=== PATIENT | male | born 2000 | race Caucasian/White ===

== ENCOUNTER 2021-05-03 04:26 | Observation (INO) | payer OTHER, SELFPAY ==
[2021-05-03] VITALS (11 sets, daily range): BP systolic 103–120; BP diastolic 56–81; PULSE 71–104; RESP 15–18; TEMP 36.4–36.9; O2SAT 91–98; BMI 23.6
--- NOTE | 2021-05-03 05:04 | XRR_ITS ---
PROCEDURE INFORMATION: Exam: XR Chest Exam date and time: 05/03/2021 5:04 AM Age: 20 years old Clinical indication: Other: Drug od; Additional info: Post cpr TECHNIQUE: Imaging protocol: XR of the chest. Views: 1 view. COMPARISON: No relevant prior studies available. FINDINGS: Lungs: No CHF/pulmonary edema. Visible lungs appear essentially clear. Pleural spaces: No visible pneumothorax. No definite pleural fluid. Heart/Mediastinum: Heart size is within normal limits. Bones/joints: No significant acute finding. XR/XR chest 1V portable [id number] IMPRESSION: 1. Essentially unremarkable single view chest. 2. Other findings discussed above.
--- NOTE | 2021-05-03 05:04 | CTR_ITS ---
PROCEDURE INFORMATION: Exam: CT Head Without Contrast Exam date and time: 05/03/2021 5:04 AM Age: 20 years old Clinical indication: Other: Drug od w/ chest compressions; Additional info: Mental status change TECHNIQUE: Imaging protocol: Computed tomography of the head without contrast. Radiation optimization: All CT scans at this facility use at least one of these dose optimization techniques: automated exposure control; mA and/or kV adjustment per patient size (includes targeted exams where dose is matched to clinical indication); or iterative reconstruction. COMPARISON: No relevant prior studies available. RADIATION DOSE METRICS: Total DLP (mGy-cm): 943.3 FINDINGS: Brain: No acute intracranial hemorrhage or mass effect. No definite acute infarct by CT. MRI could be more sensitive/specific for detection, as clinically directed. Cerebral ventricles: Ventricle size is normal for age. Paranasal sinuses: Small amount of fluid in the sphenoid sinus. Suspect a 5 mm retention cyst or polyp in both included upper maxillary sinuses. Included paranasal sinuses otherwise appear essentially clear. Mastoid air cells: No significant acute finding. Bones/joints: No definite acute skull fracture. CT/CT head wo con* [id number] IMPRESSION: 1. No acute intracranial hemorrhage or mass effect. 2. No definite acute infarct by CT, see above. 3. Other findings discussed above. Radiation Dose CTDIVOL = (mGy): DLP = 943.3 (mGy-cm)
--- NOTE | 2021-05-03 05:07 | ECG_ITS ---
[facility] Test Date: 2021-05-03 Pat Name: STEVEN VASQUEZ Department: Room: Gender: Male Automatic Buffer: : 2000 Requested By: Marv Guidry Order Number: [id number] Génesis MD: BANDAR HAWKINS Measurements Intervals [place] Rate: 120 P: -20 LA: 135 QRS: -32 QRSD: 105 T: 0 QT: 303 QTc: 429 Interpretive Statements SINUS TACHYCARDIA VOLTAGE CRITERIA FOR LVH [MEETS CRITERIA IN ONE OF: R(aVL), S(V1), R(V5), R(V5/V6)+S(V1)] INFERIOR MYOCARDIAL INFARCTION , PROBABLY OLD [40+ ms Q WAVE AND/OR ST/T ABNORMALITY IN II/aVF] No previous ECG available for comparison Electronically Signed On 05-03-2021 18:23:25 CDT by BANDAR HAWKINS [id number]
[2021-05-03] MEDS: naloxone 0.4 mg/ml SDV 1 MG IVP (05:20)
[2021-05-03 05:34] LABS: Basophils # 0.1 10^3/uL (0.0-0.1); Basophils % 0.3 %; Eosinophils % 0.1 %; Hemoglobin 17.1 g/dL (11.7-16.6); Lymphocytes # 1.4 10^3/uL (1.5-6.5); Lymphocytes % 5.6 %; Mean Corpuscular HGB Conc 34.9 g/dL (30.0-36.0); Mean Corpuscular Hemoglobin 30.8 pg (28.0-34.0); Mean Corpuscular Volume 88.3 fl (80-94); Mean Platelet Volume 9.7 fL (7.4-10.4); Monocytes # 2.3 10^3/uL (0.2-0.9); Monocytes % 9.3 %; Neutrophils # 20.19 10^3/uL (1.8-8.0); Neutrophils % 82.5 %; Nucleated Red Blood Cells % 0 %; Platelet Count 373 10^3/cmm (130-400); Red Blood Count 5.55 10^6/uL (4.1-5.3); Red Cell Distribution Width 11.9 % (12.1-15.1); White Blood Count 24.5 10^3/uL (4.5-13.0)
[2021-05-03 05:38] LABS: Bilirubin Urine Neg (Negative); Blood Urine Neg (Negative); Glucose Urine UA 4+ (Normal); Ketones Urine Negative (Negative); Leukocyte Esterase Urine Negative (Negative); Nitrate Urine Negative (Negative); Protein Urine 1+ (Negative); Specific Gravity, Urine 1.025 (1.005-1.030); Urine Appearance Clear (CLEAR); Urine Color Yellow (Yellow); Urobilinogen Urine Norm (Negative); pH Urine 5 (5-7)
[2021-05-03 05:39] LABS: Add Urine Microscopic? YES
[2021-05-03 05:44] LABS: Amphetamines Screen Urine Negative (Negative); Barbiturates Screen Urine Negative (Negative); Benzodiazepines Screen Urine Negative (Negative); Cocaine Screen Urine Negative (Negative); Opiate Screen Urine Negative (Negative); PCP Screen Urine Negative (Negative); THC Screen Urine Negative (Negative)
[2021-05-03 05:55] LABS: Troponin(5th) Baseline 53 ng/L (0-15)
[2021-05-03 05:57] LABS: Alanine Aminotransferase 43 U/L (0-41); Albumin Level 4.6 g/dL (3.5-5.2); Alkaline Phosphatase 85 IU/L (40-130); Anion Gap 19.6 (5-19); Aspartate Amino Transferase 62 U/L (0-40); Blood Urea Nitrogen 19 mg/dL (6-20); Calcium 8.7 mg/dL (8.5-10.5); Carbon Dioxide 24 mmol/L (22-29); Chloride 103 mmol/L (98-107); Glomerular Filtration Rate 70.4 mL/min (90-130); Glucose 70 mg/dL (65-115); Osmolality Calculated 297 mOsm/kg (285-295); Potassium 3.6 mmol/L (3.5-5.1); Sodium 143 mmol/L (136-145); Total Bilirubin 0.4 mg/dL (0.15-1.2); Total Protein 7.6 g/dL (6.6-8.7)
[2021-05-03 06:01] LABS: Add Urine Culture? No; Amorphous Sediment Urine 2+ /hpf; Bacteria Urine 1+ /hpf; Coarse Granular Casts Urine 0-4 /lpf; RBC Urine 0-4 /hpf (0-2); Squamous Epithelial Cell Urine 0-4 /hpf (0-5)
[2021-05-03 06:14] LABS: Acetaminophen < 5.0 ug/mL (10-30); Alcohol Level < 10 mg/dL (0-10); Salicylate < 0.3 mg/dL (3-10)
--- NOTE | 2021-05-03 06:40 | W.ED.OVERDOS ---
HPI - Overdose General: Chief Complaint: Overdose Stated Complaint: OD? Time Seen by Provider: 05/03/21 05:04 History of Present Illness: HPI Narrative: 20-year-old male who took a least part of an unknown substance pill given to him and a friend. Evidently, the patient passed out at home, but then seemed to quit breathing. Rescue breaths were provided, but the patient lost a pulse. CPR was performed for about 20 minutes by a bystander who is a university administrative assistant prior to EMS arrival. complaint: accidental overdose Onset (ago): hour(s) Timing confirmed by: family member Review of Systems Const: Denies: fever(s) or chills Eyes: Denies: change in vision Card: Denies: chest pain Resp: Denies: dyspnea GI: Reports: nausea and vomiting; Denies: abdominal pain Neuro: Denies: headache(s) Physical Exam Const: COMMON NORMALS: no acute distress and patient oriented x3 GENERAL APPEARANCE: cooperative, comfortable and lethargic; not ill appearing ORIENTATION/CONSCIOUSNESS: Yes lethargic HENMT: COMMON NORMALS: normocephalic and Normal external nose present HEAD & SCALP: normocephalic FACE & SINUS: normal facial exam NOSE: Normal external nose present MOUTH: Normal oral and palatal mucosa present Lymph: LYMPHATIC: no lymphadenopathy noted Resp: COMMON NORMALS: clear to auscultation bilaterally EFFORT & INSPECTION: Yes able to speak in complete sentences AUSCULTATION: clear to auscultation bilaterally, no crackles, no rales and no rhonchi Cardio: COMMON NORMALS: Peripheral pulses 2+ throughout RATE: tachycardic PERIPHERAL PULSES: Peripheral pulses 2+ throughout GI: COMMON NORMALS: Normal to inspection, nondistended, normoactive bowel sounds present and Soft to palpation; negative for no bruits PALPATION: Yes Soft to palpation Neuro: COMMON NORMALS: patient oriented x3 SENSORIUM/ORIENTATION: Yes lethargic Course Consultations: Consultation #1: jeremi Time: 07:31 Vital Signs: Vital signs: Vital Signs Respiratory Rate 15 05/03/21 04:31 Blood Pressure 107/67 05/03/21 04:31 Pulse Oximetry 91 05/03/21 04:31 MDM - Overdose MDM Narrative: Medical decision making narrative: 20-year-old male patient who has recovered from bystander CPR. He is awake and talking. He has no memory of the event. His heart rate is 110. Oxygen saturations are 94% on 3 L nasal cannula. His chest x-ray is negative so far. His white blood cell count is 24.5. He will come in for observation Lab Data: Labs: Lab Results 05/03/21 05/03/21 05/03/21 05:25 05:25 05:25 WBC 24.5 10^3/uL H 10 ^3/uL (4.5-13.0) RBC 5.55 10^6/uL H 10 ^6/uL (4.1-5.3) Hgb 17.1 g/dL H g/dL (11.7-16.6) Hct 49.0 % % (42.0-52.0) MCV 88.3 fl fl (80-94) MCH 30.8 pg pg (28.0-34.0) MCHC 34.9 g/dL g/dL (30.0-36.0) RDW 11.9 % L % (12.1-15.1) Plt Count 373 10^3/cmm 10^3 /cmm (130-400) MPV 9.7 fL fL (7.4-10.4) Neut % (Auto) 82.5 % % Lymph % (Auto) 5.6 % % [place] % (Auto) 9.3 % % Eos % (Auto) 0.1 % % Baso % (Auto) 0.3 % % Neut # (Auto) 20.19 10^3/uL H 1 0^3/uL (1.8-8.0) Lymph # (Auto) 1.4 10^3/uL L 10^ 3/uL (1.5-6.5) [place] # (Auto) 2.3 10^3/uL H 10^ 3/uL (0.2-0.9) Eos # (Auto) 0.0 10^3/uL 10^3/ uL (0.0-0.8) Baso # (Auto) 0.1 10^3/uL 10^3/ uL (0.0-0.1) Nucleated RBC % (a uto) 0 % % Nucleated RBCs # 0.0 /100WBC /100W BC Sodium 143 mmol/L mmol/L (136-145) Potassium 3.6 mmol/L mmol/L (3.5-5.1) Chloride 103 mmol/L mmol/L (98-107) Carbon Dioxide 24 mmol/L mmol/L (22-29) Anion Gap 19.6 H (5-19) BUN 19 mg/dL mg/dL (6-20) Creatinine 1.3 mg/dL H mg/dL (0.7-1.2) GFR Calculation 70.4 mL/min L mL/ min (90-130) Glucose 70 mg/dL mg/dL (65-115) Calculated Osmolal ity 297 mOsm/kg H mOs m/kg (285-295) Calcium 8.7 mg/dL mg/dL (8.5-10.5) Total Bilirubin 0.4 mg/dL mg/dL (0.15-1.2) AST 62 U/L H U/L (0-40) ALT 43 U/L H U/L (0-41) Alkaline Phosphata se 85 IU/L IU/L (40-130) Troponin T Baselin e 53 ng/L H ng/L (0-15) Total Protein 7.6 g/dL g/dL (6.6-8.7) Albumin 4.6 g/dL g/dL (3.5-5.2) Globulin 3.0 g/dL g/dL (1.3-4.6) Urine Color Urine Appearance Urine pH Ur Specific Gravit y Urine Protein Urine Glucose (UA) Urine Ketones Urine Blood Urine Nitrate Urine Bilirubin Urine Urobilinogen Ur Leukocyte Ashley ase Urine RBC Urine WBC Ur Squamous Epith Cells Amorphous Sediment Urine Bacteria Coarse Granular Ca sts Salicylates < 0.3 mg/dL L mg/ dL (3-10) Urine Opiates Scre en Acetaminophen < 5.0 ug/mL L ug/ mL (10-30) Ur Barbiturates Sc reen Ur Phencyclidine S crn Ur Amphetamines Sc reen U Benzodiazepines Scrn Urine Cocaine Scre en U Marijuana (THC) Screen Ethyl Alcohol < 10 mg/dL mg/dL (0-10) 05/03/21 05/03/21 05:25 05:25 WBC RBC Hgb Hct MCV MCH MCHC RDW Plt Count MPV Neut % (Auto) Lymph % (Auto) [place] % (Auto) Eos % (Auto) Baso % (Auto) Neut # (Auto) Lymph # (Auto) [place] # (Auto) Eos # (Auto) Baso # (Auto) Nucleated RBC % (a uto) Nucleated RBCs # Sodium Potassium Chloride Carbon Dioxide Anion Gap BUN Creatinine GFR Calculation Glucose Calculated Osmolal ity Calcium Total Bilirubin AST ALT Alkaline Phosphata se Troponin T Baselin e Total Protein Albumin Globulin Urine Color Yellow (Yellow) Urine Appearance Clear (CLEAR) Urine pH 5 (5-7) Ur Specific Gravit y 1.025 (1.005-1.030) Urine Protein 1+ H (Negative) Urine Glucose (UA) 4+ H (Normal) Urine Ketones Negative (Negative) Urine Blood Neg (Negative) Urine Nitrate Negative (Negative) Urine Bilirubin Neg (Negative) Urine Urobilinogen Norm mg/dL mg/dL (Negative) Ur Leukocyte Ashley ase Negative (Negative) Urine RBC 0-4 /hpf H /hpf (0-2) Urine WBC 5-10 /hpf H /hpf (0-5) Ur Squamous Epith Cells 0-4 /hpf H /hpf (0-5) Amorphous Sediment 2+ /hpf /hpf Urine Bacteria 1+ /hpf H /hpf (NONE) Coarse Granular Ca sts 0-4 /lpf H /lpf Salicylates Urine Opiates Scre en Negative ng/mL ng /mL (Negative) Acetaminophen Ur Barbiturates Sc reen Negative ng/mL ng /mL (Negative) Ur Phencyclidine S crn Negative ng/mL ng /mL (Negative) Ur Amphetamines Sc reen Negative ng/mL ng /mL (Negative) U Benzodiazepines Scrn Negative ng/mL ng /mL (Negative) Urine Cocaine Scre en Negative ng/mL ng /mL (Negative) U Marijuana (THC) Screen Negative ng/mL ng /mL (Negative) Ethyl Alcohol Discharge Plan Discharge Patient Disposition: Placed in Observation Clinical Impression: Drug overdose Qualifiers: Encounter type: initial encounter Injury intent: accidental or unintentional Qualified Code(s): T50.901A - Poisoning by unspecified drugs, medicaments and biological substances, accidental (unintentional), initial encounter Discharge Diet: Advance as tolerated Discharge Activity: Resume usual activity Coding Level of Care Code ED Ham Smoker for Jero Fwd Exam Detailed
--- NOTE | 2021-05-03 07:07 | ECG_ITS ---
[facility] Test Date: 2021-05-03 Pat Name: Cheikh Calvillo Department: Room: Gender: Male [employer] Distributor: : 2000 Requested By: Marv Guidry Order Number: [id number] Génesis MD: BANDAR HAWKINS Measurements Intervals [place] Rate: 111 P: 73 [place]: 138 QRS: 77 QRSD: 108 T: 60 QT: 314 QTc: 427 Interpretive Statements SINUS TACHYCARDIA NONSPECIFIC ST ELEVATION [0.05+ mV ST ELEVATION] ABNORMAL RHYTHM ECG Compared to ECG 05/03/2021 05:20:55 ST (T wave) deviation now present Left ventricular hypertrophy no longer present Myocardial infarct finding no longer present Electronically Signed On 05-03-2021 18:24:40 CDT by BANDAR HAWKINS [id number]
[2021-05-03 07:53] LABS: Troponin 5 2HR 57.72 ng/L (0-15); Troponin 5 2HR Delta 4.72 ABS# (0-10)
[2021-05-03] MEDS: sodium chloride 0.9% 1,000 ML 999 ML IV (08:13)
--- NOTE | 2021-05-03 08:25 | USCV_ITS ---
Cheikh Calvillo Age: 20 Gender: M : 2000 Exam Date: 05/03/2021 10:51 Ordering Phys: Anival Coughlin MD Technologist: Susan Gonzalez [place] [facility] [place] [place]: Cardiopulmonary arrest BP: 103 / 81 HR: 92 Rhythm: Sinus Technical Quality: Fair MEASUREMENTS (Male / Female) Normal Values 2D ECHO LV Diastolic Diameter PLAX 5.0 cm 4.2 - 5.9 / 3.9 - 5.3 cm LV Systolic Diameter PLAX 3.7 cm LV Chamber Size 4.5 cm IVS Diastolic Thickness 0.9 cm 0.6 - 1.0 / 0.6 - 0.9 cm IVS Systolic Thickness 1.0 cm LVPW Diastolic Thickness 1.0 cm 0.6 - 1.0 / 0.6 - 0.9 cm LVPW Systolic Thickness 1.3 cm RV Chamber Size 3.0 cm LVOT Diameter 2.2 cm LV Ejection Fraction 2D Teich 50.1 % LV Ejection Fraction MOD 2C 30.7 % LV Ejection Fraction 2C AL 34.4 % LA Diameter 2.6 cm LA Width 2.6 cm LA Height 5.1 cm RA Width 3.2 cm RA Height 3.4 cm Aorta at Sinotubular Diameter 2.1 cm M-MODE LV Diastolic Diameter MM 4.6 cm 4.2 - 5.9 / 3.9 - 5.3 cm LV Systolic Diameter MM 3.8 cm LV Ejection Fraction MM Teich 37.0 % IVS Diastolic Thickness MM 1.1 cm 0.6 - 1.0 / 0.6 - 0.9 cm IVS Systolic Thickness MM 1.3 cm LVPW Diastolic Thickness MM 1.0 cm 0.6 - 1.0 / 0.6 - 0.9 cm LVPW Systolic Thickness MM 1.3 cm RV Diastolic Diameter MM 1.7 cm Aortic Annulus Diameter 2.6 cm LA Ao Ratio MM 1.1 MV E Point Septal Separation 0.6 cm DOPPLER AV Peak Velocity 103.0 cm/s LVOT Peak Velocity 89.0 cm/s AV Area Cont Eq vti 3.3 cm squared AV Area Cont Eq pk 3.2 cm squared MV Area PHT 4.1 cm squared Mitral E to A Ratio 1.4 MV E' Velocity 38.0 cm/s Mitral E to MV E' Ratio 6.2 Mitral E to LV E' Lateral Ratio 5.2 Mitral E to LV E' Septal Ratio 7.7 TV Peak E Velocity 55.0 cm/s Right Atrial Pressure 3.0 mmHg PV Peak Velocity 52.0 cm/s RV Acceleration Time 0.1 s RV Ejection Time 0.2 s RV AcT/ET 0.4 FINDINGS Left Ventricle Moderately increased left ventricular cavity size. Severely decreased left ventricular systolic function. Global left ventricular hypokinesis. Left ventricular ejection fraction is estimated at 37 %.Grade II/IV diastolic dysfunction, moderately elevated filling pressures. Right Ventricle The right ventricle is normal in size and function. RVSP could not be calculated due to incomplete tricuspid regurgitation velocity profile. Right Atrium The right atrium is normal in size. Left Atrium The left atrium is normal in size. Mitral Valve Structurally normal mitral valve without significant stenosis or prolapse. There is no mitral regurgitation. Aortic Valve Structurally normal aortic valve without significant sclerosis or stenosis. There is no aortic regurgitation. Tricuspid Valve Structurally normal tricuspid valve without significant stenosis or regurgitation. Pulmonary artery systolic pressure is normal. Pulmonic Valve Structurally normal pulmonic valve without significant stenosis. There is no pulmonic regurgitation. Pericardium Normal pericardium without effusion. Aorta Normal ascending aorta dimension. CONCLUSIONS 1-Moderately increased left ventricular cavity size. Severely decreased left ventricular systolic function. Global left ventricular hypokinesis. Left ventricular ejection fraction is estimated at 37 %.Grade II/IV diastolic dysfunction, moderately elevated filling pressures. 2-The right ventricle is normal in size and function. RVSP could not be calculated due to incomplete tricuspid regurgitation velocity profile. 3-There is no pericardial effusion. 4-No significant valve abnormalities. 5-Right atrial pressure is around 5 mm of mercury. 6-There are no prior echocardiogram studies to compare. Cristhian Ponce MD (Electronically Signed) Final Date: 03 May 2021 13:31 S
--- NOTE | 2021-05-03 08:46 | P.HP_ITS ---
Providers/Chief Complaint Admitting Physician: Anival Coughlin Chief Complaint: OD? History of Present Illness 20-year-old passed out at home after taking a half of an unknown tablet given to him and his friend reportedly with EtOH intake as well, noted unresponsive and then not breathing at home. He cannot provide me with any details. Last thing he remembers is helping his father fix the shower. CPR was performed by a neighbor reported to be a retired sap business analyst who also administered Narcan. Duration of CPR reported to be 20 minutes. In the ER required 1 additional dose of Narcan. Subsequently awake and talking. Urine drug screen noted negative. EKG with sinus tachycardia, on first EKG possibly with some LVH. Troponin abnormal, 53-57.7. Noted transaminitis, AST 62, ALT 43, acute kidney injury, creatinine 1.3. Leukocytosis 24.5. Heart rate 99. Afebrile. Saturation 95% on room air. Head CT without acute finding. Chest x-ray essentially unremarkable. Request is made for placement to observation. States she is currently feeling okay but nauseated. Review of Systems Const: Denies: fever(s), chills, body aches or malaise Eyes: Denies: change in vision or eye redness ENMT: Denies: throat pain, oral sores or ear or mastoid pain Card: Denies: chest pain, edema, pre-syncope or dyspnea on exertion Resp: Denies: dyspnea, productive cough, change in phlegm color or hemoptysis GI: Reports: nausea; Denies: abdominal pain, vomiting, diarrhea, constipation, hematochezia or melena : Denies: flank pain, difficulty urinating, urinary frequency or hematuria Musc: Denies: back pain, joint swelling or joint redness Skin/Breast: Denies: rash, sores or new lesions Neuro: Denies: headache(s), numbness in extremities, weakness in extremities, dizziness, confusion or seizure-like activity Endo: Denies: polyuria or polydipsia Ortiz/Lymph: Denies: easy bleeding or purpura All/Imm: Denies: urticaria, throat swelling or tongue swelling PFSH Acute PFSH: Medical History Asthma Surgical History H/O shoulder surgery Family History Other No significant family history Social History Smoking and tobacco status: current every day smoker cigarettes Packs smoked per day: 0.5 Alcohol intake: current Lives independently: Yes Marital status: Single Current occupational status: employed 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 Vitals/I&O/Wt Last Vital Signs Pulse 99 05/03/21 08:41 Resp 17 05/03/21 08:41 BP 103/81 05/03/21 08:41 Pulse Ox 95 05/03/21 08:41 Weight last 48 hrs Weight 74.843 kg Physical Exam Const: COMMON NORMALS: no acute distress and patient oriented x3 HENMT: COMMON NORMALS: oropharynx normal Neck/C-Spine: COMMON NORMALS: no JVD Resp: COMMON NORMALS: normal respiratory effort and clear to auscultation bilaterally AUSCULTATION: clear to auscultation bilaterally Cardio: COMMON NORMALS: no JVD, regular rhythm, S1 normal heart sound present, S2 normal heart sound present and No murmurs present (Cardio) RHYTHM: regular rhythm HEART SOUNDS: S1 normal heart sound present and S2 normal heart sound present GI: COMMON NORMALS: Normal to inspection, nondistended, normoactive bowel sounds present, Soft to palpation and non-tender PALPATION: Yes Soft to palpation Extremity: COMMON NORMALS: no joint enlargement and no pedal edema Neuro: COMMON NORMALS: patient oriented x3 and moves all extremities Skin: COMMON NORMALS: no rashes or lesions noted GENERAL SKIN EXAM: no rashes or lesions noted Data : 05/03/21 05:25 05/03/21 05:25 A&P Assessment and plan (1) Drug overdose: Took an unknown substance, half a tablet, with an unknown amount of liquor. Subsequently cardiopulmonary arrest. CPR for 20 minutes. Received Narcan, and dose was repeated in ER. Monitor mental status, monitor on telemetry. Consult against use of street drugs or taking any unknown substances from strangers. He verbalized understanding and intends to not to do so again. Encourage avoidance of alcohol. Status: Acute Qualifiers: Encounter type: initial encounter Injury intent: accidental or unintentional Qualified Code(s): T50.901A - Poisoning by unspecified drugs, medicaments and biological substances, accidental (unintentional), initial encounter (2) Cardiopulmonary arrest: Reported CPR time 20 minutes. Discussed with him multiple organ injury including ALEXA, transaminitis, elevated troponin. Discussed concern for brain hypoperfusion as well during the arrest. Currently his only complaint is nausea. Monitor on telemetry. Complete troponin EKG series. Assess TTE. Status: Acute (3) ALEXA (acute kidney injury): Following Up fusion during cardiopulmonary arrest. Denies taking any medications on a regular basis. Received fluid challenge in ER. Reassess creatinine. Status: Acute (4) Transaminitis: Secondary to hypoperfusion during cardiac arrest. Possibly alcohol. Status: Acute (5) Troponin level elevated: Suspected post cardiac arrest. Complete troponin EKG series, TTE. Monitor on telemetry. Status: Acute (6) Abnormal urinalysis: Repeat UA Status: Acute Additional A&P Information History of asthma Attestations Medical Necessity Statement*: Placed in observation for monitoring with telemetry, assessment of TTE, reassessment of renal function, liver transaminase levels following cardiopulmonary arrest after ingestion of unknown substance with EtOH. 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
[2021-05-03] MEDS: ondansetron 4 MG Tablet PO (09:36)
[2021-05-03 12:19] LABS: Troponin 5 6HR 40.52 ng/L (0-15)
[2021-05-03 12:27] LABS: Troponin 5 6HR Delta -12.48 ng/L (0-12)
[2021-05-03] MEDS: acetaminophen 325 mg Tablet 650 MG PO (18:37)
[2021-05-04 03:49] VITALS: BP 108/57; PULSE 86; RESP 18; TEMP 36.7; O2SAT 95
[2021-05-04 05:14] LABS: Basophils % 0.3 %; Eosinophils # 0.1 10^3/uL (0.0-0.8); Eosinophils % 0.4 %; Hematocrit 44.9 % (42.0-52.0); Hemoglobin 15.1 g/dL (11.7-16.6); Lymphocytes # 2.3 10^3/uL (1.5-6.5); Lymphocytes % 17.5 %; Mean Corpuscular HGB Conc 33.6 g/dL (30.0-36.0); Mean Corpuscular Volume 89.3 fl (80-94); Mean Platelet Volume 10.2 fL (7.4-10.4); Monocytes # 1.2 10^3/uL (0.2-0.9); Monocytes % 9.1 %; Neutrophils # 9.54 10^3/uL (1.8-8.0); Neutrophils % 72.3 %; Nucleated Red Blood Cells % 0 %; Platelet Count 281 10^3/cmm (130-400); Red Blood Count 5.03 10^6/uL (4.1-5.3); Red Cell Distribution Width 11.9 % (12.1-15.1); White Blood Count 13.2 10^3/uL (4.5-13.0)
[2021-05-04 05:38] LABS: Alanine Aminotransferase 31 U/L (0-41); Alkaline Phosphatase 66 IU/L (40-130); Anion Gap 12.6 (5-19); Aspartate Amino Transferase 30 U/L (0-40); Blood Urea Nitrogen 11 mg/dL (6-20); Calcium 8.7 mg/dL (8.5-10.5); Carbon Dioxide 28 mmol/L (22-29); Chloride 100 mmol/L (98-107); Globulin 2.5 g/dL (1.3-4.6); Glomerular Filtration Rate 107.6 mL/min (90-130); Glucose 92 mg/dL (65-115); Osmolality Calculated 283 mOsm/kg (285-295); Potassium 3.6 mmol/L (3.5-5.1); Sodium 137 mmol/L (136-145); Total Bilirubin 0.8 mg/dL (0.15-1.2); Total Protein 6.5 g/dL (6.6-8.7)
[2021-05-04 06:00] VITALS: PULSE 46
[2021-05-04 07:52] VITALS: BP 112/62; PULSE 79; RESP 16; TEMP 37; O2SAT 97
[2021-05-04 08:38] LABS: Chol HDL Ratio 2.84 mg/dL (1.0-5.00); Cholesterol 108 mg/dL (0-200); HDL Cholesterol 38 mg/dL (60-100); LDL Cholesterol Calculated 58 mg/dL (50-129); LDL HDL Ratio 1.53 RATIO (0.00-3.22); Triglycerides 62 mg/dL (0-150)
[2021-05-04 11:21] VITALS: BP 128/70; PULSE 87; RESP 16; TEMP 37.5; O2SAT 96
--- NOTE | 2021-05-04 11:27 | P.CONIM_ITS ---
Providers/Reason For Consult Consulting Physician/Specialty*: Cardiology Reason for Consult*: Severely depressed ejection fraction new onset of heart failure Attending Physician: Anival Coughlin History of Present Illness History of Present Illness Cheikh Calvillo is a 20 year old male past medical history significant for continuous tobacco abuse for the last 1 year, history of binge drinking denies any recreational drugs except weed at occasion who was admitted with respiratory distress and post CPR when he mixed what he called hydrocodone with his drinks. He was given Narcan in the emergency room and observed overnight. Echocardiogram was performed which showed severe to moderately depressed LV function of 37%. Patient denies history of coronary artery disease in the family, history of uncontrolled diabetes mellitus, history of viral-like illness. He denies chest pain PND orthopnea shortness of breath and categori benji IV drug use. Urine toxicology did not show any significant drugs with Review of Systems General: Reports: ROS unobtainable due to medical condition Const: Denies: fever(s), chills, body aches or malaise Eyes: Denies: change in vision or eye redness ENMT: Denies: throat pain, oral sores or ear or mastoid pain Card: Denies: chest pain, edema, pre-syncope or dyspnea on exertion Resp: Denies: dyspnea, productive cough, change in phlegm color or hemoptysis GI: Reports: nausea; Denies: abdominal pain, vomiting, diarrhea, constipation, hematochezia or melena : Denies: flank pain, difficulty urinating, urinary frequency or hematuria Musc: Denies: back pain, joint swelling or joint redness Skin/Breast: Denies: rash, sores or new lesions Neuro: Denies: headache(s), numbness in extremities, weakness in extremities, dizziness, confusion or seizure-like activity Endo: Denies: polyuria or polydipsia Ortiz/Lymph: Denies: easy bleeding or purpura All/Imm: Denies: urticaria, throat swelling or tongue swelling Meds/Allergies Home Medications and Allergies Home Medications Medication Instructions Recorded Confirmed Last Taken Type No Known Home Medications 05/03/21 05/03/21 Unknown History Allergies Allergy/AdvReac Type Severity Reaction Status Date / Time No Known Allergies Allergy Unverified 05/03/21 10:46 Current Medications Current Medications Generic Name Dose Route Start Last Admin Trade Name Freq PRN Reason Stop Dose Admin Acetaminophen 650 mg 05/03/21 12:00 05/03/21 18:37 Acetaminophen 325 Mg Tablet PO 650 mg Q6H PRN Administration Mild/Mod Pain Or Temp >/= 101 Ondansetron HCl 4 mg 05/03/21 08:50 05/03/21 09:36 Ondansetron 4 Mg Tablet PO 4 mg Q6H PRN Administration NAUSEA AND VOMITING PFSH Acute PFSH: Medical History Asthma Surgical History H/O shoulder surgery Family History Other No significant family history Social History Smoking and tobacco status: current every day smoker cigarettes Packs smoked per day: 0.5 Alcohol intake: current Lives independently: Yes Marital status: Single Current occupational status: employed 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 NECK: No jugular vein distension. HEENT: No cyanosis. No icterus. No pallor. HEART: Regular S1 and S2. No murmur, rub or gallop. LUNGS: Clear to auscultate bilaterally. ABDOMEN: Soft, nontender and nondistended. Positive bowel sounds. No guarding, rebound or tenderness. CENTRAL NERVOUS SYSTEM: Grossly nonfocal. EXTREMITIES: Lower extremities without edema bilaterally. A&P Assessment and plan (1) Cardiomyopathy: Patient has severely depressed LV function with estimated ejection fracti on on 37%. I have offered patient performing angiogram versus stress test in order to differentiate between cardiomyopathy including ischemic versus nonischemic cardiomyopathy. We will add beta-jane RENETTA inhibitor to the regimen. Patient may will be needing on LifeVest for now. I have detailed discussion with the patient regarding my plan he says he would like to think about it and will discuss with the family and we will let me know. I have told him that I am available and will be happy to answer the questions. Status: Acute Qualifiers: Cardiomyopathy type: unspecified Qualified Code(s): I42.9 - Cardiomyopathy, unspecified (2) Cardiopulmonary arrest: Patient has questionable cardiac arrest, could it be respiratory arrest only due to overdose of narcotics. There is no mentioning of arrhythmias. Twelve-lead EKG showed sinus tachycardia upon presentation without any significant ST?T changes or any abnormal QT QTC intervals. There is no significant bump in the cardiac markers. Echocardiogram showed severe to moderate LV dysfunction which could be incidental and secondary to ethanol abuse or nonischemic cardiomyopathy. It need to be further investigated. Currently there is no arrhythmia on telemetry. Status: Acute (3) Drug overdose: Patient is stable vital goncalves. Status: Acute Qualifiers: Encounter type: initial encounter Injury intent: accidental or unintentional Qualified Code(s): T50.901A - Poisoning by unspecified drugs, medicaments and biological substances, accidental (unintentional), initial encounter Consult Attestations Medical Necessity Statement: Patient require continuation hospitalization for above defined care Coding Level of Care Code New [facility] Patient Type New History Detailed Exam Detailed Medical Decision Making Moderate Complexity Diagnoses Cardiomyopathy I42.9 Cardiomyopathy type: unspecified Cardiopulmonary arrest I46.9 Drug overdose T50.901A Encounter type: initial encounter Injury intent: accidental or unintentional
[2021-05-04 15:21] VITALS: BP 130/71; PULSE 69; RESP 16; TEMP 37; O2SAT 98
--- NOTE | 2021-05-04 16:40 | PC.NURSE ---
PT HAS DONE WELL FOR ME. PT HAS NOT HAD ANY EPISODES OF ANY IRREGULAR HEART RHYTHMS. PT HAS NOT HAD ANY COMPLAINTS OF PAIN TODAY EITHER. PT WANT STO GO HOME. BOTH THE HOSPITALIST AND COMPLIANCE REPRESENTATIVE HAVE BEEN IN TO TALK TO THE PT AND THE PTS FATHER. PT DOES NOT WANT TO GET THE RECOMMENDED ANGIOGRAM, HE WANTS TO GO HOME AND GET SOME OTHER OPINIONS FROM THEIR PHYSICIANS. PT WILL GET TO GO AHEAD AND DISCHARGE. THIS NURSE DISCUSSED THE IMPORTANCE OF SEEING HIS OTHER PHYSICIANS SOON. DISCHARGE PAPERWORK AND EDUCATION WAS GIVEN TO PT. ALL QUESTIONS ANSWERED. IV WAS REMOVED. PT TOLERATED WELL. CATHETER TIP INTACT. PT SAFELY WHEELED OUT BY THIS NURSE.
[2021-05-04 16:45] VITALS: BP 130/71; PULSE 69; RESP 16; TEMP 37; O2SAT 98
--- NOTE | 2021-05-04 22:30 | PM.DCS ---
Discharge Providers Date of Admission: 05/03/21 07:41 Date of Discharge: May 04, 2021 Attending Provider at Admission: Anival Coughlin Attending Provider at Discharge: Anival Coughlin Diagnoses at Discharge Discharge Diagnosis (1) Cardiomyopathy: Status: Acute Qualifiers: Cardiomyopathy type: unspecified Qualified Code(s): I42.9 - Cardiomyopathy, unspecified (2) Cardiopulmonary arrest: Status: Acute (3) Drug overdose: Status: Acute Qualifiers: Encounter type: initial encounter Injury intent: accidental or unintentional Qualified Code(s): T50.901A - Poisoning by unspecified drugs, medicaments and biological substances, accidental (unintentional), initial encounter (4) ALEXA (acute kidney injury): Status: Acute (5) Transaminitis: Status: Acute (6) Troponin level elevated: Status: Acute (7) Abnormal urinalysis: Status: Acute Reason for Visit Reason for Visit: OD? Hospital Course Hospital Course Pleasant 20-year-old gentleman with history of lung disease, asthma, possible early COPD follow-up with pulmonology, had taken a half a tablet of unknown substance provided to him and his friend at a gas station with unknown amount of alcohol, subsequently noted unresponsive at home by his father, lost pulse, CPR initiated and conducted by his father and neighbor who is a retired medication administration professional who had some Narcan available which was administered. CPR duration was about 20 minutes. Subsequently required additional Narcan dose in ER, after that remaining awake and alert, although with limited memory of events preceding the code, with last thing he remembers is helping his father fix the shower. His condition, including multiple organ injury with acute kidney injury, transaminitis, troponin elevation, due to hypoperfusion, discussed with him. With PBX MANAGER hypoperfusion, possibility of some long-term cognitive and other sequela. He is encouraged to abstain from any unknown substances, any street drugs, alcohol, encouraged to quit smoking. He was monitored in the hospital with uneventful course, resolution of ALEXA, transaminitis, improvement in leukocytosis. Chest x-ray at presentation, head CT unremarkable. UA with noted mild asymptomatic pyuria with 5-10 WBC, 0-4 RBC, 0-4 squamous epithelial cells, although without genitourinary complaints suspected perhaps contaminated urine sample. Repeat requested to confirm, although could not be obtained due to short cut hospital stay. In light of findings on the echocardiogram which showed low ejection fraction, 37%, grade 2 diastolic dysfunction with global left ventricular hypokinesis, cardiology was consulted, and had an extensive discussion with him with regards to consideration of causes of the finding. As we had also discussed difficult to state whether low EF is the result of cardiac arrest, unknown substance ingestion, possibly binge alcohol consumption, or whether low EF has been present/building up for some time before, and contributed to the presentation and now discovered incidentally. He had not had any symptoms of CHF, although also does not currently. As per discussion with cardiology of different options, risk and benefits, additional assessment with coronary therapy was discussed and recommended with tentative plans set for tomorrow; however, on additional discussion of patient with family they had decided to leave the hospital early, and return to [place] to continue assessment there with their customer loyalty representative Dr. Oneal due to having to also care for patient's disabled brother back home. At discharge we discussed he is also per cardiology recommendation continued aspirin, and initiated on carvedilol, losartan. We are providing him and his family also with prescription for Narcan, although patient denied any recurrent substance use and this is hopefully a one off event. He is also encouraged to adhere with his inhaler medications as per discussion with his parents and follow-up with pulmonology. Given young age of onset of possible COPD, discussed to also discuss and consider whether could be benefit in assessing for alpha-1 antitrypsin deficiency, or other conditions which may be considered now also in the context of noted low ejection fraction with global left ventricular hypokinesis. He is otherwise feeling well, without signs of congestive heart failure, denies any complaints today and states intends to follow-up for additional assessment as recommended. Physical Exam Narrative: EXAM NARRATIVE: Father at bedside. Const: COMMON NORMALS: no acute distress, patient oriented x3 and alert GENERAL APPEARANCE: cooperative and comfortable ORIENTATION/CONSCIOUSNESS: Yes awake HENMT: COMMON NORMALS: oropharynx normal Neck/C-Spine: COMMON NORMALS: no JVD Resp: COMMON NORMALS: normal respiratory effort and clear to auscultation bilaterally AUSCULTATION: clear to auscultation bilaterally Cardio: COMMON NORMALS: no JVD, regular rhythm, S1 normal heart sound present, S2 normal heart sound present and No murmurs present (Cardio) RHYTHM: regular rhythm HEART SOUNDS: S1 normal heart sound present and S2 normal heart sound present GI: COMMON NORMALS: Normal to inspection, nondistended, normoactive bowel sounds present, Soft to palpation and non-tender PALPATION: Yes Soft to palpation Extremity: COMMON NORMALS: no joint enlargement and no pedal edema Neuro: COMMON NORMALS: patient oriented x3 and moves all extremities SENSORIUM/ORIENTATION: Yes alert Skin: COMMON NORMALS: no rashes or lesions noted GENERAL SKIN EXAM: no rashes or lesions noted Discharge Data Data Completed and Pending: Completed Studies During Hospitalization Category Date Time Status CT head wo con* 7 0450 Urgent Cat Scan 05/03/21 05:04 Completed XR chest 1V johanne ble [id number] Urgent Exams 05/03/21 05:04 Completed CV. echo complete * [id number] Routine Ultrasound 05/03/21 08:25 Completed Pending at discharge Category Date Time Status Urinalysis AM LAB S Lab 05/03/21 16:03 Ordered Labs from last 24 hours 05/04/21 05/04/21 05/04/21 04:43 04:43 04:43 WBC 13.2 H RBC 5.03 Hgb 15.1 Hct 44.9 MCV 89.3 MCH 30.0 MCHC 33.6 RDW 11.9 L Plt Count 281 MPV 10.2 Neut % (Auto) 72.3 Lymph % (Auto) 17.5 Harrison % (Auto) 9.1 Eos % (Auto) 0.4 Baso % (Auto) 0.3 Neut # (Auto) 9.54 H Lymph # (Auto) 2.3 Harrison # (Auto) 1.2 H Eos # (Auto) 0.1 Baso # (Auto) 0.0 Nucleated RBC % (a uto) 0 Nucleated RBCs # 0.0 Sodium 137 Potassium 3.6 Chloride 100 Carbon Dioxide 28 Anion Gap 12.6 BUN 11 Creatinine 0.9 GFR Calculation 107.6 Glucose 92 Calculated Osmolal ity 283 L Calcium 8.7 Total Bilirubin 0.8 AST 30 ALT 31 Alkaline Phosphata se 66 Total Protein 6.5 L Albumin 4.0 Globulin 2.5 Triglycerides 62 Cholesterol 108 LDL Cholesterol, C alc 58 HDL Cholesterol 38 L LDL/HDL Ratio 1.53 Cholesterol/HDL Ra jaun 2.84 Vitals: Last Vital Signs Temp 98.6 F 05/04/21 16:45 Pulse 69 05/04/21 16:45 Resp 16 05/04/21 16:45 BP 130/71 05/04/21 16:45 Pulse Ox 98 05/04/21 16:45 Discharge Plan Discharge Patient Disposition: Home Condition: Stable Prescriptions: New aspirin 81 mg tablet,delayed release (DR/EC) 81 mg PO DAILY Qty: 90 RF: 0 losartan 25 mg tablet 25 mg PO DAILY Qty: 90 RF: 0 carvedilol 3.125 mg tablet 3.125 mg PO BID Qty: 180 RF: 0 Narcan 4 mg/actuation spray,non-aerosol 4 mg intranasal Q2M PRN (Reason: opioid overdose) Qty: 2 RF: 0 Discharge Orders: Discharge Order (Routine); Ordered 05/04/21 Ordered By: Anival Coughlin Referrals: [address] [place] [address]-JACLYN Barone [Other] (Please follow up with a Primary care provider in 4-7days from discharge. You will need to call & schedule an appointment. ) [facility] Oneal [Other] (Soonest available appointment, please set up as per family provided fax number.) Discharge Diet: Advance as tolerated Discharge Activity: Increase activity as tolerated and Limit activity as instructed Patient Instructions: Losartan (By mouth), Carvedilol (By mouth), Naloxone (Into the nose), Heart Failure (GEN), How to Stop Smoking (GEN), Acute Kidney Injury (IP), Cigarette Smoking and Your Health (GEN), At-Risk Alcohol Use (GEN), Opioid Safety Activity Restrictions/Additional Instructions: Please note that you were in cardiac arrest with cardiopulmonary resuscitation for about 20 minutes, subsequently with multiple organ injury including heart, kidney, liver. Your brain may not have been getting perfusion during that time as well. Please follow-up with your primary doctor on all these issues, and to look for any lingering/persistent injury that may need additional follow-up. Please note that we are finding that your heart is squeezing more weekly than it should at about 37% ejection fraction, as well as has difficulty relaxing with grade 2 diastolic dysfunction. The cause of this is not clear at this time. It is not also not entirely clear whether this is the result of the cardiopulmonary arrest that you had sustained or whether this was something developing for a while before and had contributed to it. Please make sure to follow-up with customer loyalty representative as discussed at soonest available appointment for additional follow-up to further discuss recommended additional assessment as per customer loyalty representative here which was not completed, and any additional other investigations your customer loyalty representative may recommend. Please avoid taking any unknown substances, any street drugs, avoid any alcohol. Please stop smoking. All of them may contribute to continued worsening of your health, or make because recurrence dangerous conditions including severe arrhythmia, cardiopulmonary arrest and premature . As you are leaving the hospital earlier than anticipated, some investigations could not be completed. In addition to follow-up on the organ systems above, please have your primary doctor also repeat urinalysis at the next appointment. Some elevation in white blood cells in urine was noted (5-10), although these may have been due to contamination, however, if you experience any urinary symptoms, burning with urination, frequency or other, please contact your doctor. Please continue your usual medications for your breathing problems as prescribed by your doctor. Please note due to decreased ejection fraction you are at this time continued on aspirin, started on carvedilol, losartan. Please discuss with your customer loyalty representative any additional recommended medications. In case you are experiencing shortness of breath, wheezing, hold any additional carvedilol and contact your doctor. If you experience severe chest pain, shortness of breath, fainting, heart racing, or any other concerning symptoms, please call 911. Discharge Attestations Time Spent in Discharge Care*: greater than 30 min Quality Metrics Clinical Quality Measures During this hospital stay, did patient experience: None Coding Level of Care Code Acute Chg FW DC note Diagnoses Cardiomyopathy I42.9 Cardiomyopathy type: unspecified Cardiopulmonary arrest I46.9 Drug overdose T50.901A Encounter type: initial encounter Injury intent: accidental or unintentional ALEXA (acute kidney injury) N17.9 Transaminitis R74.01 Troponin level elevated R77.8 Abnormal urinalysis R82.90
--- NOTE | 2021-05-05 14:30 | PC.RESP ---
sent smoking cessation information
--- NOTE | 2021-05-06 10:58 | PC.SOCIAL ---
discharge follow up call made, spoke with patient. patient reports he is feeling good. patient made an appointment to see his pcp on wednesday and has transportation to appointment. nurse advised patient to take his discharge paperwork with him to the follow up appointment so he can discuss concerns with his pcp that the hospitalist found. patient verbalizes understanding. patient picked up new medications from the pharmacy and he is taking as directed.
== END 2021-05-04 16:46 | disposition home or self-care (01) ==
LOC: ER 07:34 → MEDSURG 08:15
PROVIDERS: Admitting Provider Internal Medicine; Emergency Provider Emergency Medicine; Visit Provider Internal Medicine
DX: I42.9 Cardiomyopathy, unspecified (principal); I46.9 Cardiac arrest, cause unspecified; T50.901A Poisoning by unspecified drugs, medicaments and biological substances, accidental (unintentional), initial encounter; N17.9 Acute kidney failure, unspecified; R74.01 Elevation of levels of liver transaminase levels; R77.8 Other specified abnormalities of plasma proteins; R82.90 Unspecified abnormal findings in urine; F17.210 Nicotine dependence, cigarettes, uncomplicated
CPT/HCPCS: 36415; 70450; 71045; 80053; 80061; 80306; 80307; 81001; 84484; 85025; 93005; 93306; 96361; 96374; 99285; 99291; G0378; J2310; J7030; Q0162

== ENCOUNTER → 2025-05-22 15:14 | Outpatient (BNVA) | payer OTHER, SELFPAY | PROVIDERS: PCP Registered Nurse School; Visit Provider Orthopaedic Surgery | DX: S42.022A Displaced fracture of shaft of left clavicle, initial encounter for closed fracture (principal); V29.99XA Rider (driver) (passenger) of other motorcycle injured in unspecified traffic accident, initial encounter | CPT/HCPCS: 73000 ==

== ENCOUNTER → 2025-05-29 14:29 | Outpatient (BNVA) | payer OTHER, SELFPAY | PROVIDERS: PCP Registered Nurse School; Visit Provider Orthopaedic Surgery | DX: S42.022D Displaced fracture of shaft of left clavicle, subsequent encounter for fracture with routine healing (principal); X58.XXXD Exposure to other specified factors, subsequent encounter | CPT/HCPCS: 73000 ==

== ENCOUNTER → 2025-06-14 14:11 | Outpatient (BNVA) | payer OTHER, SELFPAY | PROVIDERS: PCP Registered Nurse School; Visit Provider Orthopaedic Surgery | DX: S42.022D Displaced fracture of shaft of left clavicle, subsequent encounter for fracture with routine healing (principal); X58.XXXA Exposure to other specified factors, initial encounter; R93.7 Abnormal findings on diagnostic imaging of other parts of musculoskeletal system | CPT/HCPCS: 73000 ==